=== PATIENT | male | born 1970 | race American Indian/Alaskan Native ===

== ENCOUNTER 2022-02-19 21:57 | Emergency (ER) | payer MEDICARE ==
[2022-02-20 01:10] VITALS: BP 94/60
[2022-02-20] MEDS ORDERED: IBUPROFEN 600 MG TAB PO ONE (05:27)
[2022-02-20] MEDS ORDERED: ACETAMINOPHEN 500 MG TAB PO ONE (05:27)
[2022-02-20] MEDS ORDERED: predniSONE 50 MG TAB PO ONE (05:27)
--- NOTE | 2022-02-20 06:00 | Emergency Department Report ---
ED Extremity Problem HPI - General Chief complaint: Extremity Injury, Lower Stated complaint: KNEE PAIN/DETOX Source: patient Mode of arrival: Ambulatory Limitations: No Limitations - History of Present Illness Initial comments: Patient is a 50-year-old male with a history of chronic osteoarthritis and chronic left knee pain who presents to the ED with complaint of acute exacer bation of his chronic left knee pain characterized by pain and swelling for the last 1 week, worse in the last 2 days. Patient states that any weightbearing activities make the pain worse in the left knee. Patient denies fall, traumatic injury, dizziness, syncope, chest pain, shortness of breath, numbness and tingling or weakness of lower and upper extremities bilaterally. MD Complaint: extremity pain (Left knee pain and swelling), extremity swelling (left knee pain, swelling), joint swelling (left knee), joint paint (left knee) -: Gradual, month(s) (6) Location: left, lower extremity (left knee), knee (left pain, swelling) History of Same: Yes (chronic) -: Yes arthralgia (left knee) Radiation: none Severity scale (0 -10): 8 Quality: aching, sharp, constant Consistency: constant Improves with: nothing Worsens with: weight bearing, walking, exertion, palpation Associated Symptoms: denies other symptoms, arthralgias. denies: chest pain, shortness of breath, fever, myalgias, rash, other - Related Data Previous Rx's Medication Instructions Recorded Last Taken Type Ibuprofen [Motrin] 800 mg PO Q8HR PRN #30 tablet 02/20/22 Unknown Rx predniSONE [Deltasone] 60 mg PO QDAY #15 tab 02/20/22 Unknown Rx tiZANidine [Zanaflex 4mg TAB] 4 mg PO Q8H PRN #24 tab 02/20/22 Unknown Rx traMADoL [Ultram] 50 mg PO Q6HR PRN #12 tablet 02/20/22 Unknown Rx Allergies Allergy/AdvReac Type Severity Reaction Status Date / Time latex Allergy Unknown Verified 02/20/22 01:10 ED Review of Systems ROS: Stated complaint: KNEE PAIN/DETOX Other details as noted in HPI Constitutional: denies: chills, fever Eyes: denies: eye pain, eye discharge, vision change ENT: denies: ear pain, throat pain Respiratory: denies: cough, shortness of breath, wheezing Cardiovascular: denies: chest pain, palpitations Endocrine: no symptoms reported Gastrointestinal: denies: abdominal pain, nausea, vomiting, diarrhea Genitourinary: denies: urgency, dysuria Musculoskeletal: joint swelling (left knee mild swelling), arthralgia (left knee pain). denies: back pain Skin: denies: rash, lesions Neurological: denies: headache, weakness, paresthesias Psychiatric: denies: anxiety, depression Hematological/Lymphatic: denies: easy bleeding, easy bruising ED Past Medical Hx - Past Medical History Previous Medical History?: Yes Hx Psychiatric Treatment: Yes (ptsd, bipolar) Additional medical history: Herniated disk, chronic knee pain - Medications Home Medications: Home Medications Medication Instructions Recorded Confirmed Last Taken Type Ibuprofen [Motrin] 800 mg PO Q8HR PRN #30 tablet 02/20/22 Unknown Rx predniSONE [Deltasone] 60 mg PO QDAY #15 tab 02/20/22 Unknown Rx tiZANidine [Zanaflex 4mg TAB] 4 mg PO Q8H PRN #24 tab 02/20/22 Unknown Rx traMADoL [Ultram] 50 mg PO Q6HR PRN #12 tablet 02/20/22 Unknown Rx ED Physical Exam - General Limitations: No Limitations General appearance: alert, in no apparent distress - Head Head exam: Present: atraumatic, normocephalic, normal inspection - Eye Eye exam: Present: normal appearance, PERRL, EOMI Pupils: Present: normal accommodation - ENT ENT exam: Present: normal exam, normal orophraynx, mucous membranes moist, TM's normal bilaterally, normal external ear exam - Neck Neck exam: Present: normal inspection, full ROM. Absent: tenderness - Respiratory Respiratory exam: Present: normal lung sounds bilaterally. Absent: respiratory distress, wheezes, rales, stridor, chest wall tenderness, accessory muscle use, decreased breath sounds, prolonged expiratory - Cardiovascular Cardiovascular Exam: Present: regular rate, normal rhythm, normal heart sounds. Absent: systolic murmur, diastolic murmur, rubs, gallop - GI/Abdominal GI/Abdominal exam: Present: soft, normal bowel sounds. Absent: tenderness, guarding, rebound, hypoactive bowel sounds, organomegaly, bruit - Extremities Exam Extremities exam: Present: normal inspection, full ROM, tenderness (Palpable left knee tenderness with mild swelling), normal capillary refill, joint swelling. Absent: pedal edema, calf tenderness - Back Exam Back exam: Present: normal inspection, full ROM. Absent: tenderness, CVA tenderness (R), CVA tenderness (L), muscle spasm, paraspinal tenderness, vertebral tenderness - Neurological Exam Neurological exam: Present: alert, oriented X3, CN II-XII intact, normal gait, reflexes normal - Psychiatric Psychiatric exam: Present: normal affect, normal mood - Skin Skin exam: Present: warm, dry, intact, normal color. Absent: rash ED Course Vital Signs 02/20/22 01:06 Temperature 98.8 F Pulse Rate 74 Respiratory 16 Rate Blood Pressure 94/60 [Right] O2 Sat by Pulse 96 Oximetry ED Medical Decision Making - Radiology Data Radiology results: report reviewed, image reviewed - Medical Decision Making This is a 50-year-old male with a history of chronic osteoarthritis and chronic left knee pain who presents to the ED with complaint of acute exacerbation of his chronic left knee pain characterized by pain and swelling for the last 1 week, worse in the last 2 days. Patient states that any weightbearing activities make the pain worse in the left knee. In the ED, patient is alert and oriented x3 and is not in any distress. Patient however appears to be in pain. Patient was treated for pain in the ED and discharged home on medications. The left knee x-ray showed no acute fractures or subluxations. Left knee was splinted with Sarwat wrap and the patient was discharged home on medications for pain and advised to follow-up with the orthopedic surgeon Dr. Reed in 5 to 7 days for reevaluation. Patient was advised to return to the ED immediately if symptoms get worse. - Differential Diagnosis knee osteoarthritis; Knee sprain; chronic pain Critical care attestation.: If time is entered above; I have spent that time in minutes in the direct care of this critically ill patient, excluding procedure time. ED Disposition Clinical Impression: Localized osteoarthritis of knee, Effusion of left knee Sprain of left knee/leg Qualifiers: Encounter type: initial encounter Qualified Code(s): S83.92XA - Sprain of unspecified site of left knee, initial encounter Disposition: HOME / SELF CARE / HOMELESS Is pt being admited?: No Does the pt Need Aspirin: No Condition: Stable Instructions: Arthritis, [id number], Knee Sprain, Adult, [id number], Knee Effusion, [id number] Additional Instructions: Take medication with food, drink plenty of fluids, follow-up with the orthopedic surgeon Dr. Reed for further evaluation. Return to the ED immediately if symptoms get worse. Prescriptions: predniSONE [Deltasone] 60 mg PO QDAY #15 tab Ibuprofen [Motrin] 800 mg PO Q8HR PRN #30 tablet PRN Reason: Pain , Severe (7-10) traMADoL [Ultram] 50 mg PO Q6HR PRN #12 tablet PRN Reason: Pain tiZANidine [Zanaflex 4mg TAB] 4 mg PO Q8H PRN #24 tab PRN Reason: Muscle Spasm Referrals: YADIEL REED MD [Staff Physician] - 3-5 Days Forms: Work/School Release Form(ED) Time of Disposition: 06:00 Print Language: MEXICAN
--- NOTE | 2022-02-20 06:19 | XRay Report ---
LEFT KNEE 4 VIEW(S) INDICATION / CLINICAL INFORMATION: PAIN COMPARISON: None available. FINDINGS: Moderate suprapatellar joint effusion is present. No acute osseous findings. IMPRESSION: 1. Moderate joint effusion without evidence of fracture. MRI may be useful for further evaluation of ligamentous structures. Signer Name: Ismael Quinn II, MD Signed: 02/20/2022 6:14 AM Workstation Name: [id number]
== END 2022-02-20 07:35 | disposition home or self-care (01) ==
LOC: ED 21:57
DX: S83.92XA Sprain of unspecified site of left knee, initial encounter (principal); M17.12 Unilateral primary osteoarthritis, left knee; Z91.040 Latex allergy status; X58.XXXA Exposure to other specified factors, initial encounter; Y93.89 Activity, other specified; Y92.89 Other specified places as the place of occurrence of the external cause; Y99.8 Other external cause status
CPT/HCPCS: 73562; 99283; J7512